=== PATIENT | male | born 1935 | race Caucasian/White ===

== ENCOUNTER → 2016-08-14 | Outpatient (CLI) | payer MEDICARE, OTHER ==
[~2016-08-14] MED LIST: ATORVASTATIN CA40 MG PO; BUSPIRONE HCL15 MG PO; CALCIUM500 M1 PO; COREG 25MG TAB25 MG PO; CYMBALTA 30 MG30 MG PO; FLAGYL500 MG PO; FLOMAX0.4 MG PO; LEVAQUIN500 MG PO; LOSARTAN POTAS100 MG PO; MAGNESIUM OXID400 MG PO; MIRTAZAPINE30 MG PO; NITROGLYCERIN0.4 MG SL; PLAVIX 75 MG TA75 MG PO; PROTONIX 40 MG40 M1 PO; SPIRIVA18 MCG INH; SPIRONOLACTONE25 MG PO; ZINC OXIDE OINT30 GM TOP
== END ==
LOC: KOH-I 15:28
DX: M54.5 Low back pain (principal); M51.36 Other intervertebral disc degeneration, lumbar region; M47.816 Spondylosis without myelopathy or radiculopathy, lumbar region
CPT/HCPCS: 72110

== ENCOUNTER → 2016-08-17 | Outpatient (CLI) | payer MEDICARE, OTHER ==
[2016-08-17 12:58] LABS: BUN/CREATININE RATIO 19 (0-10)
== END ==
LOC: OPSV 11:41
PROVIDERS: Family Medicine
DX: E83.42 Hypomagnesemia (principal); R94.4 Abnormal results of kidney function studies
CPT/HCPCS: 36415; 80048; 96365; 96366

== ENCOUNTER 2016-09-14 13:20 | Observation (INO) | payer MEDICARE, OTHER ==
[~2016-09-14] VITALS: Ht 170.2 cm; Wt 53.7 kg
[2016-09-14 14:49] LABS: HEMOGLOBIN 11.4 gm/dl (14.0-17.5); RED BLOOD COUNT 3.7 M/UL (4.20-5.50); WHITE BLOOD COUNT 8.3 K/UL (4.5-11.0)
[2016-09-14 15:08] LABS: BUN/CREATININE RATIO 10 (0-10)
[2016-09-14] MEDS ORDERED: BUSPIRONE HCL15 MG PO (18:48)
[2016-09-14] MEDS ORDERED: ATORVASTATIN CA40 MG PO (18:48)
[2016-09-14] MEDS ORDERED: COREG 25MG TAB25 MG PO (18:49)
[2016-09-14] MEDS ORDERED: PLAVIX 75 MG TA75 MG PO (18:49)
[2016-09-14] MEDS ORDERED: MAGNESIUM OXID400 MG PO (18:49)
[2016-09-14] MEDS ORDERED: LOSARTAN POTAS100 MG PO (18:49)
[2016-09-14] MEDS ORDERED: MIRTAZAPINE30 MG PO (18:51)
[2016-09-14] MEDS ORDERED: PROTONIX 40 MG40 M1 PO (18:51)
[2016-09-14] MEDS ORDERED: FLOMAX0.4 MG PO (18:51)
[2016-09-14] MEDS ORDERED: SPIRIVA18 MCG INH (18:52)
[2016-09-14] MEDS ORDERED: ZINC OXIDE OINT30 GM TOP (18:53)
[2016-09-14] MEDS ORDERED: CYMBALTA 30 MG30 MG PO (18:54)
[2016-09-14] MEDS ORDERED: NITROGLYCERIN0.4 MG SL (18:54)
[2016-09-14] MEDS ORDERED: CALCIUM500 M1 PO (18:54)
[2016-09-14] MEDS ORDERED: SPIRONOLACTONE25 MG PO (18:55)
[2016-09-14] MEDS ORDERED: FLAGYL500 MG PO (18:55)
[2016-09-14] MEDS ORDERED: LEVAQUIN500 MG PO (18:55)
[2016-09-15 03:10] LABS: HEMOGLOBIN 10.6 gm/dl (14.0-17.5); RED BLOOD COUNT 3.5 M/UL (4.20-5.50); WHITE BLOOD COUNT 7.2 K/UL (4.5-11.0)
[2016-09-15 03:41] LABS: BUN/CREATININE RATIO 12 (0-10)
[2016-09-16 04:31] LABS: HEMOGLOBIN 11.7 gm/dl (14.0-17.5); RED BLOOD COUNT 3.76 M/UL (4.20-5.50)
[2016-09-16 04:32] LABS: WHITE BLOOD COUNT 9.3 K/UL (4.5-11.0)
== END 2016-09-16 17:40 | disposition home or self-care (01) ==
LOC: ER1 13:20 → ZEROF 16:30 → PROG CARE 18:42
PROVIDERS: Emergency Medicine; Family Medicine; ADMIT Family Medicine
DX: I48.91 Unspecified atrial fibrillation (principal); I25.10 Atherosclerotic heart disease of native coronary artery without angina pectoris; N18.9 Chronic kidney disease, unspecified; I25.2 Old myocardial infarction; R31.9 Hematuria, unspecified; K92.2 Gastrointestinal hemorrhage, unspecified; M86.9 Osteomyelitis, unspecified; N40.0 Benign prostatic hyperplasia without lower urinary tract symptoms; F41.1 Generalized anxiety disorder; K21.9 Gastro-esophageal reflux disease without esophagitis; I13.0 Hypertensive heart and chronic kidney disease with heart failure and stage 1 through stage 4 chronic kidney disease, or unspecified chronic kidney disease; R00.0 Tachycardia, unspecified; L02.211 Cutaneous abscess of abdominal wall; D62 Acute posthemorrhagic anemia; I50.20 Unspecified systolic (congestive) heart failure; Z95.5 Presence of coronary angioplasty implant and graft; Z85.038 Personal history of other malignant neoplasm of large intestine; Z86.2 Personal history of diseases of the blood and blood-forming organs and certain disorders involving the immune mechanism; Z90.49 Acquired absence of other specified parts of digestive tract
CPT/HCPCS: ECHO; 36415; 71010; 80048; 80053; 81001; 82550; 82553; 83735; 83880; 84443; 84484; 85025; 85027; 86140; 87086; 93005; 93306; 94640; 94664; 99285; G0378

== ENCOUNTER → 2016-10-03 | Outpatient (CLI) | payer MEDICARE, OTHER | LOC: LAB 11:25 | PROVIDERS: Family Medicine | DX: Z51.81 Encounter for therapeutic drug level monitoring (principal); I48.0 Paroxysmal atrial fibrillation; Z79.899 Other long term (current) drug therapy | CPT/HCPCS: 36415; 80048; 80162 ==